=== PATIENT | female | born 1985 | race Caucasian/White ===

== ENCOUNTER → 2016-10-16 | Outpatient (CLI) | payer BC ==
[~2016-10-16] MED LIST: BUSP5TAB59 PO; CETI10TA84 PO; CIPR-255 PO; CITA20TA9 PO
--- NOTE | 2016-10-16 12:26 | DIAGNOSTIC IMAGING REPORT ---
EXAMINATION: PELVIC ULTRASOUND (transabdominal and endovaginal scanning) CLINICAL HISTORY: Adnexal mass COMPARISON STUDY: 10/09/2015 FINDINGS: The uterus measured 7.6 x 3.1 x 4.5 cm. The bulging gland cysts are visualized. The endometrial stripe measured 9 mm. The right ovary measured 30 x 18 x 24 mm. The left ovary measured 38 x 18 x 24 mm.. There is no ultrasonographic evidence of ovarian torsion. It should be noted that ovarian torsion can be present with normal Doppler ultrasonographic findings. There is trace free fluid likely physiologic. IMPRESSION: Normal pelvic ultrasound. Electronically signed by: Júnior Martinez M.D. 10/16/2016 12:24 PM Dictated Date/Time: 10/16/2016 12:23 PM
== END | disposition home or self-care (01) ==
LOC: C.ULTR 11:40
PROVIDERS: ATTEND Nurse Practitioner Family
DX: N94.9 Unspecified condition associated with female genital organs and menstrual cycle (principal)

== ENCOUNTER 2017-01-01 09:29 | Emergency (ER) | payer BC ==
[~2017-01-01 09:29] MED LIST changes: -BUSP5TAB59 PO
[2017-01-01 09:35] VITALS: TEMP 36.9
[2017-01-01] MEDS ORDERED: MoRPHine SULFATE 4 MG/ML 1 ML CARP\\VIAL IV STA (09:46)
[2017-01-01] MEDS ORDERED: ONDANSETRON INJ 2 MG/ML 2 ML VIAL IV STA (09:46)
[2017-01-01] MEDS ORDERED: SODIUM CHLORIDE 0.9% 1000ML 1,000 ML IV STA (09:46)
[2017-01-01 10:07] LABS: BASO % 0.7 %; BASO ABS # 0.03 K/uL (0-0.2); COMPLETE YES; EOS % 1.9 %; HEMATOCRIT 37.1 % (37-47); IG% 0.2 %; LYMPH ABS # 1.28 K/uL (1.2-3.4); MEAN CELL VOLUME 88.3 fL (80-100); MEAN CORPUSCULAR HEMOGLOBIN 31.4 pg (25-34); MEAN CORPUSCULAR HGB CONC 35.6 g/dl (32-36); MEAN PLATELET VOLUME 8.9 fL (7.4-10.4); MONO % 9.4 %; NEUT % 56.8 %; PLATELET COUNT 303 K/uL (130-400); WHITE BLOOD COUNT 4.13 K/uL (4.8-10.8)
--- NOTE | 2017-01-01 10:15 | EMERGENCY ROOM VISIT NOTE ---
History Report prepared by Brody: Delaney Cardona Under the Supervision of: Dr. Katy Zamudio M.D. First contact with patient: 09:41 Chief Complaint: ABDOMINAL PAIN Stated Complaint: SEVERE ABD. CRAMPS, HIP PAIN-RIGHT SIDE History of Present Illness The patient is a 31 year old female who presents to the Emergency Room with complaints of waxing and waning abdominal pain for the past 4 days. The patient took a test at home 4 days ago because of a missed period. The test was positive and she estimates that she is about 5 weeks . Over the past few days she has had some lower abdominal cramping that is worse on the right side. She states that her pain has been getting more intense, and last night her pain was so severe that she was doubled over. The patient reports burning pain into her right hip. She rates her pain as an 8/10 in severity. She denies any vaginal bleeding or previous gynecologic problems. This is her first . Her blood type is A+ and she has never had a blood transfusion. 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 Source of History: patient Onset: 4 days ago Position: abdomen Symptom Intensity: 8/10 Quality: burning, cramping Timing: waxes/wanes Note: Pt denies vaginal bleeding. Review of Systems See HPI for pertinent positives & negatives. A total of 10 systems reviewed and were otherwise negative. Past Medical & Surgical Medical Problems: (1) Asthma (2) Bronchitis Surgical Problems: (1) H/O wisdom tooth extraction Family History Cancer Heart disease Hypertension Kidney disease Kidney stones Social History Smoking Status: Never Smoker Smokeless Tobacco Use: No Alcohol Use: occasionally Marital Status: in relationship Housing Status: lives with significant other Occupation Status: employed Current/Historical Medications Scheduled Buspirone Hcl (Buspirone Hcl), 1 TAB PO QPM Citalopram Hydrobromide (Celexa), 10 MG PO DAILY Allergies Coded Allergies: Cefuroxime (Unverified Adverse Reaction, Unknown, UNK, 10/09/15) Clindamycin (Unverified Adverse Reaction, Unknown, UNK, 10/09/15) Doxycycline (Unverified Adverse Reaction, Unknown, UNK, 10/09/15) Erythromycin (Unverified Adverse Reaction, Unknown, unk, 10/09/15) Physical Exam Vital Signs Date Time Temp Pulse Resp B/P (MAP) Pulse Ox O2 Delivery O2 Flow Rate FiO2 01/01/17 12:15 89 18 111/63 100 01/01/17 11:19 80 22 105/72 100 Room Air 01/01/17 10:05 89 01/01/17 09:35 36.9 78 20 121/80 100 Room Air Physical Exam Vital signs reviewed. General: Well-appearing 31 year old female, in no significant distress. HEENT: No scleral icterus, PERRLA, neck supple. Atraumatic. Cardiovascular: Regular rate and rhythm, no extra sounds. Pulmonary: Clear to auscultation bilaterally, normal work of breathing. Abdomen: Soft, mild RLQ tenderness, no rebound or guarding, nondistended, positive bowel sounds. Musculoskeletal: Atraumatic, no peripheral edema. Neurologic: Patient awake alert and oriented x 3, full strength in all 4 extremities. Cranial nerves 2 through 12 grossly intact. Skin: Warm, dry, no rash Medical Decision & Procedures ER Provider Diagnostic Interpretation: Radiology results as stated below per my review and radiologist interpretation: ECTOPIC CLINICAL HISTORY: RLQ abd pain, 5 weeks Joseph pain TECHNIQUE: Ultrasound COMPARISON STUDY: 10/16/2016 FINDINGS: Intrauterine gestational sac measuring 1 cm. No pole is confirmed on this may be secondary to the early gestational age. A yolk sac is present. Right ovary measures 3.3 cm at maximum with normal vascular flow. 1.7 cm corpus luteum cyst. Left ovary measures 2.8 cm with normal vascular flow. IMPRESSION: 1. Early intrauterine gestational sac demonstrating a yolk sac. 2. A pole is not confirmed, although this may be secondary to the early gestational age is 5 weeks. 3. 1.7 cm corpus luteum cyst right ovary. 4. Follow-up ultrasound is recommended in one to 2 weeks to confirm viability The above report was generated using voice recognition software. It may contain grammatical, syntax or spelling errors. Electronically signed by: Pedro Triplett M.D. 01/01/2017 11:07 AM Dictated Date/Time: 01/01/2017 11:04 AM Laboratory Results 01/01/17 09:51 Red Blood Count 4.20, Mean Corpuscular Volume 88.3, Mean Corpuscular Hemoglobin 31.4, Mean Corpuscular Hemoglobin Concent 35.6, Mean Platelet Volume 8.9, Neutrophils (%) (Auto) 56.8, Lymphocytes (%) (Auto) 31.0, Monocytes (%) (Auto) 9.4, Eosinophils (%) (Auto) 1.9, Basophils (%) (Auto) 0.7, Neutrophils # (Auto) 2.34, Lymphocytes # (Auto) 1.28, Monocytes # (Auto) 0.39, Eosinophils # (Auto) 0.08, Basophils # (Auto) 0.03 01/01/17 09:51 Test 01/01/17 09:51 01/01/17 10:05 01/01/17 10:25 White Blood Count 4.13 K/uL (4.8-10.8) Red Blood Count 4.20 M/uL (4.2-5.4) Hemoglobin 13.2 g/dL (12.0-16.0) Hematocrit 37.1 % (37-47) Mean Corpuscular Volume 88.3 fL (80-100) Mean Corpuscular Hemoglobin 31.4 pg (25-34) Mean Corpuscular Hemoglobin Concent 35.6 g/dl (32-36) Platelet Count 303 K/uL (130-400) Mean Platelet Volume 8.9 fL (7.4-10.4) Neutrophils (%) (Auto) 56.8 % Lymphocytes (%) (Auto) 31.0 % Monocytes (%) (Auto) 9.4 % Eosinophils (%) (Auto) 1.9 % Basophils (%) (Auto) 0.7 % Neutrophils # (Auto) 2.34 K/uL (1.4-6.5) Lymphocytes # (Auto) 1.28 K/uL (1.2-3.4) Monocytes # (Auto) 0.39 K/uL (0.11-0.59) Eosinophils # (Auto) 0.08 K/uL (0-0.5) Basophils # (Auto) 0.03 K/uL (0-0.2) RDW Standard Deviation 39.0 fL (36.4-46.3) RDW Coefficient of Variation 12.1 % (11.5-14.5) Immature Granulocyte % (Auto) 0.2 % Immature Granulocyte # (Auto) 0.01 K/uL (0.00-0.02) Anion Gap 6.0 mmol/L (3-11) Estimated GFR () 131.5 Estimated GFR (Non- 113.5 BUN/Creatinine Ratio 16.3 (10-20) Calcium Level 8.8 mg/dl (8.5-10.1) Total Bilirubin 0.4 mg/dl (0.2-1) Direct Bilirubin < 0.1 mg/dl (0-0.2) Aspartate Amino Transf (AST/SGOT) 15 U/L (15-37) Alanine Aminotransferase (ALT/SGPT) 19 U/L (12-78) Alkaline Phosphatase 49 U/L (45-117) Total Protein 7.2 gm/dl (6.4-8.2) Albumin 3.9 gm/dl (3.4-5.0) Human Chorionic Gonadotropin, Qual POS (NEG) Urine Color YELLOW Urine Appearance CLEAR (CLEAR) Urine pH 7.0 (4.5-7.5) Urine Specific [place] 1.014 (1.000-1.030) Urine Protein NEG (NEG) Urine Glucose (UA) NEG (NEG) Urine Ketones NEG (NEG) Urine Occult Blood TRACE (NEG) Urine Nitrite NEG (NEG) Urine Bilirubin NEG (NEG) Urine Urobilinogen NEG (NEG) Urine Leukocyte Esterase MODERATE (NEG) Urine WBC (Auto) 5-10 /hpf (0-5) Urine RBC (Auto) 5-10 /hpf (0-4) Urine Hyaline Casts (Auto) 1-5 /lpf (0-5) Urine Epithelial Cells (Auto) >30 /lpf (0-5) Urine Bacteria (Auto) 1+ (NEG) Human Chorionic Gonadotropin, Quant 69807 mIU/mL Date/Time Source Procedure Growth Status 01/01/17 10:05 Urine , Clean Catch Urine Culture - Final THREE TYPES OF ORGANSIMS PRESENT, ALL... Complete Laboratory results per my review. Medications Administered Medications (Trade) Dose Ordered Sig/Milla Route Start Time Stop Time Status Last Admin Dose Admin Sodium Chloride 1,000 ml @ 999 mls/hr Q1H1M STAT IV 01/01/17 09:46 01/01/17 10:46 DC 01/01/17 09:59 999 MLS/HR Morphine Sulfate (MoRPHine SULFATE INJ) 4 mg NOW STAT IV 01/01/17 09:46 01/01/17 09:48 DC 01/01/17 10:00 4 MG Ondansetron HCl (Zofran Inj) 4 mg NOW STAT IV 01/01/17 09:46 01/01/17 09:48 DC 01/01/17 09:59 4 MG ED Course 09: Past medical records reviewed. The patient was evaluated in room B12B. A complete history and physical examination was performed. 0946: Zofran 4 mg IV, Morphine sulfate 4 mg IV, NSS 1000 ml @ 999 mls/hr IV 1140: I updated the patient on her US results. 1200: I reassessed the patient at this time. She is feeling better and resting comfortably. I discussed the results and treatment plan with the patient. I answered all pertaining questions that she had. She expressed understanding and verbalized agreement. The patient will be discharged home. Medical Decision Differential diagnosis: Etiologies such as appendicitis, diverticulitis, PUD, biliary pathology, UTI, pancreatitis, obstruction, mesenteric ischemia, aortic pathology, infections, inflammatory bowel disease, renal colic, ectopic , intrauterine , kidney stone, ovarian cyst, as well as others were entertained. This patient was evaluated and appeared to be in no significant distress. IV access was obtained and laboratory work was drawn. Patient was placed on the plumbing drafter and found to be cholecystitis rhythm. Patient was hydrated with normal saline solution. Patient was given morphine and Zofran for her discomforts. Ultrasound pelvis was performed and reveals an IUP. Patient was informed of the findings. She'll follow-up with her COIL FINISHER this week and return to the ER for worsening of symptoms or any medical concerns. Impression Primary Impression: First trimester Additional Impression: Right lower quadrant abdominal pain Scribe Attestation The scribe's documentation has been prepared under my direction and personally reviewed by me in its entirety. I confirm that the note above accurately reflects all work, treatment, procedures, and medical decision making performed by me. Departure Information Dispostion Home / Self-Care Referrals uHbert Bender M.D. (PCP) Forms Call Back Authorization, HOME CARE DOCUMENTATION FORM, IMPORTANT VISIT INFORMATION Patient Instructions My [facility] Additional Instructions Diagnosis: Right lower quadrant abdominal pain, first trimester . Tylenol 650 mg every 6 hours as needed for pain. Drink plenty of clear fluids and do not overexert herself. 2 chewable vitamins daily. Avoid alcohol and illicit substances. Do not use ibuprofen or aspirin. Follow-up with your COIL FINISHER as scheduled if not sooner. Return to the emergency department for worsening of symptoms or any medical concerns. Problem Qualifiers
[2017-01-01 10:19] LABS: URINE APPEARANCE CLEAR (CLEAR); URINE BILIRUBIN NEG (NEG); URINE COLOR YELLOW; URINE EPITHELIAL CELL AUTO >30 /lpf (0-5); URINE NITRITE NEG (NEG); URINE SPECIFIC GRAVITY 1.014 (1.000-1.030); UROBILINOGEN NEG (NEG); ZZUR CULT IF INDIC CLEAN CATCH YES
[2017-01-01 10:23] LABS: MANUAL MICROSCOPIC REQUIRED? NO; REVIEW REQ? NO
[2017-01-01 10:31] LABS: ALT/SGPT 19 U/L (12-78); BLOOD UREA NITROGEN 12 mg/dl (7-18); BUN/CREATININE RATIO 16.3 (10-20); CALCIUM 8.8 mg/dl (8.5-10.1); CARBON DIOXIDE 25 mmol/L (21-32); CHLORIDE 108 mmol/L (98-107); CREATININE 0.71 mg/dl (0.60-1.20); GLUCOSE 87 mg/dl (70-99); POTASSIUM 3.4 mmol/L (3.5-5.1); SODIUM 139 mmol/L (136-145)
[2017-01-01 10:34] LABS: ALKALINE PHOSPHATASE 49 U/L (45-117); AST/SGOT 15 U/L (15-37)
[2017-01-01 10:53] LABS: PREG INTERNAL NEGATIVE QC NEG CLEAR BACKGROUND; PREG INTERNAL POSITIVE QC POS CONTROL LINE
--- NOTE | 2017-01-01 11:09 | DIAGNOSTIC IMAGING REPORT ---
ECTOPIC CLINICAL HISTORY: RLQ abd pain, 5 weeks Joseph pain TECHNIQUE: Ultrasound COMPARISON STUDY: 10/16/2016 FINDINGS: Intrauterine gestational sac measuring 1 cm. No pole is confirmed on this may be secondary to the early gestational age. A yolk sac is present. Right ovary measures 3.3 cm at maximum with normal vascular flow. 1.7 cm corpus luteum cyst. Left ovary measures 2.8 cm with normal vascular flow. IMPRESSION: 1. Early intrauterine gestational sac demonstrating a yolk sac. 2. A pole is not confirmed, although this may be secondary to the early gestational age is 5 weeks. 3. 1.7 cm corpus luteum cyst right ovary. 4. Follow-up ultrasound is recommended in one to 2 weeks to confirm viability The above report was generated using voice recognition software. It may contain grammatical, syntax or spelling errors. Electronically signed by: Pedro Triplett M.D. 01/01/2017 11:07 AM Dictated Date/Time: 01/01/2017 11:04 AM
[2017-01-01] MEDS ORDERED: BUSP5TAB59 PO (11:12)
[2017-01-01 12:15] VITALS: BP 111/63; PULSE 89; O2SAT 100
== END 2017-01-01 12:18 | disposition home or self-care (01) ==
LOC: C.EDB 09:30
DX: O26.91 Pregnancy related conditions, unspecified, first trimester (principal); R10.31 Right lower quadrant pain; J45.909 Unspecified asthma, uncomplicated; Z79.899 Other long term (current) drug therapy; Z80.9 Family history of malignant neoplasm, unspecified; Z82.49 Family history of ischemic heart disease and other diseases of the circulatory system; Z84.1 Family history of disorders of kidney and ureter

== ENCOUNTER 2017-08-24 05:46 | Inpatient (IN) | payer OTHER ==
[~2017-08-24] VITALS: Ht 162.6 cm; Wt 87.7 kg
[~2017-08-24 05:46] MED LIST changes: +BUSP5TAB59 PO; -CETI10TA84 PO; -CIPR-255 PO
[2017-08-24] MEDS ORDERED: NURSING VERBAL MED ORDER ONE (08:15)
[2017-08-24] MEDS ORDERED: OXYTOCIN 30 UNITS/500ML NSS IV ONE (08:19)
[2017-08-24] MEDS ORDERED: PENICILLIN G POTASSIUM IV 6 MU in DEXTROSE 5% 250ML IV ONE (08:30)
[2017-08-24] MEDS ORDERED: LACTATED RINGER'S 1000ML 1,000 ML IV SCH (09:40)
[2017-08-24] MEDS ORDERED: OXYTOCIN 30 UNITS/500ML NSS IV PRN (09:45)
[2017-08-24] MEDS ORDERED: LANOLIN OINT EXT PRN (09:45)
[2017-08-24] MEDS ORDERED: BENZOCAINE 20% AER SPR 82.5 GM CAN EXT PRN (09:45)
[2017-08-24] MEDS ORDERED: HYDROCORTISONE ACETATE 25 MG SUPP PR PRN (09:45)
[2017-08-24] MEDS ORDERED: DIPHTHERIA/TETANUS/PERTUSSIS 0.5 ML SYR/VIAL IM. ONE (09:45)
[2017-08-24] MEDS ORDERED: MEASLES, MUMPS & RUBELLA VIRUS VIAL SQ. ONE (09:45)
[2017-08-24] MEDS ORDERED: SUPERCREAM 0.870 % 15GM JAR EXT PRN (09:45)
[2017-08-24] MEDS ORDERED: ACETAMINOPHEN 325 MG TAB PO PRN (09:45)
[2017-08-24] MEDS ORDERED: OXYCODONE/ACETAMINOPHEN 5-325 TAB PO PRN (09:45)
[2017-08-24 10:04] LABS: HEMATOCRIT 38.5 % (37-47); HEMOGLOBIN 13.6 g/dL (12.0-16.0); MEAN CELL VOLUME 84.4 fL (80-100); MEAN CORPUSCULAR HEMOGLOBIN 29.8 pg (25-34); MEAN CORPUSCULAR HGB CONC 35.3 g/dl (32-36); MEAN PLATELET VOLUME 10.4 fL (7.4-10.4); PLATELET COUNT 220 K/uL (130-400); RED CELL DISTRIBUTION WIDTH CV 13.3 % (11.5-14.5); WHITE BLOOD COUNT 15.79 K/uL (4.8-10.8)
[2017-08-24 11:30] VITALS: Ht 162.6 cm; Wt 87.7 kg
[2017-08-24 12:51] VITALS: BP 121/77; PULSE 118; TEMP 36.6; O2SAT 98
--- NOTE | 2017-08-24 15:15 | DELIVERY SUMMARY ---
DATE OF OPERATION: 08/24/2017 TIME OF DELIVERY OF BABY: 8:59 a.m. TIME OF DELIVERY OF PLACENTA: 9:30 a.m. DETAILS OF ADMISSION AND DELIVERY: The patient is a 31-year-old G1, P0, at 39 weeks of gestation, who presented to labor and delivery this morning for labor check. She started to feel contractions at around 0030am this morning, they were every 5 minutes initially and then get closer and more painful. When she first presented to L&D her cervix was 3 cm dilated, 25% effaced, -3, and posterior location and the contractions were every 3-7 minutes. Her nurse discussed the case with Dr. Carbone who recommended to recheck her in 2 hours. She ambulated and then she came back to monitor again. She was having contractions every 3-4 minutes. She was taken off from monitor at 7:46 a.m. Until then, she was not very uncomfortable. Her contractions were mild to moderate and she was able to talk and laugh with them. She was going to take another walk until 8:15 but she suddenly got uncomfortable at 8:00 a.m. and then she was brought back to the bed by RYLAN Strickland, who checked her and found that she was fully dilated with tight bulging membranes which spontaneously ruptured. I was called into the room. When I presented to the room, she was uncomfortable and involuntarily pushing. I checked her cervix, has thin rim on the right side right side, about 9 cm, 90% effaced and 0 station. The heart rate was in 120s. She had not had IV at that point. IV was then started and pharmacy was called for penicillin due to GBS positive status. 6 million units of penicillin were given while she was pushing. She pushed for about 45 minutes and delivered the head without difficulty. Shoulders came right after with the head with one push. The baby was handed off to mother where mouth and nose were suctioned. Cord was clamped x2 and cut at 1 minute delay. Cord blood was obtained. Vagina and perineum were checked for lacerations. There was a second-degree perineal laceration and first-degree right labial laceration. Rectal exam was done and confirmed to be second degree. Excellent sphincter tone was noted. Gloves were changed. 1% lidocaine was used for local anesthesia. The perineal laceration was repaired with 2-0 Vicryl in a running locked fashion and labial laceration was repaired with 3-0 Vicryl in running fashion. Excellent hemostasis was achieved. . Placenta was found to be in the vagina, delivered spontaneously intact and complete, and lower segment was cleared of all clots and debris. Fundus was firm. EBL was 200. Mother and baby tolerated the procedure well. At the end of the procedure, sponge, lap, needle and instrument counts were correct x2. The baby was a viable female infant. Apgars 8/9. Weight was 3205 gr. No complications happened. I was present during the whole procedure. I attest to the content of the Intraoperative Record and any orders documented therein. Any exceptions are noted below. MTDD
[2017-08-24] MEDS: IBUPROFEN 600 MG TAB PO PRN ×2 (16:12→23:26)
[2017-08-24 16:15] VITALS: BP 119/79; PULSE 96; TEMP 37.1
[2017-08-24 20:20] VITALS: BP 120/79; PULSE 96; TEMP 36.9
[2017-08-24] MEDS: DOCUSATE SODIUM 100 MG CAP PO SCH (20:33)
[2017-08-24] MEDS: CITALOPRAM 20 MG TAB PO SCH (21:36)
[2017-08-24 23:20] VITALS: BP 129/80; PULSE 85; TEMP 36.7; O2SAT 99
[2017-08-25 03:05] VITALS: BP 113/73; PULSE 85; TEMP 36.8; O2SAT 99
[2017-08-25 07:24] LABS: HEMATOCRIT 29.7 % (37-47); HEMOGLOBIN 10.4 g/dL (12.0-16.0)
[2017-08-25 08:15] VITALS: BP 119/82; PULSE 96; TEMP 36.8; O2SAT 98
--- NOTE | 2017-08-25 08:20 | OB/GYN Progress Note ---
COMMUNICATION CENTER OPERATOR Progress Note Date of Service Aug 25, 2017. Subjective conversation w/ patient, physical exam Ambulation: ambulating normally Voiding: no voiding problems Passing Gas: Yes Diet Tolerance: Regular Diet Lochia: Small Feeding Type: Breast Feeding Objective Vital Signs Date Time Temp Pulse Resp B/P (MAP) Pulse Ox O2 Delivery O2 Flow Rate FiO2 08/25/17 03:05 36.8 85 18 113/73 (86) 99 Room Air 08/24/17 23:20 99 Room Air 08/24/17 23:20 36.7 85 16 129/80 (96) 99 Room Air 08/24/17 20:20 36.9 96 18 120/79 (93) Room Air 08/24/17 16:15 37.1 96 18 119/79 (92) Room Air 08/24/17 16:15 Room Air 08/24/17 12:51 36.6 118 20 121/77 (92) 98 Room Air 08/24/17 12:51 Room Air Physical Exam General Appearance: WELL-APPEARING, NO APPARENT DISTRESS Abdomen: non tender, soft Fundus: Firm Extremities: normal inspection, no pedal edema, no calf tenderness Laboratory Results Last 24 Hours Test 08/24/17 09:48 08/25/17 06:40 White Blood Count 15.79 K/uL Red Blood Count 4.56 M/uL Hemoglobin 13.6 g/dL 10.4 g/dL Hematocrit 38.5 % 29.7 % Mean Corpuscular Volume 84.4 fL Mean Corpuscular Hemoglobin 29.8 pg Mean Corpuscular Hemoglobin Concent 35.3 g/dl RDW Standard Deviation 40.0 fL RDW Coefficient of Variation 13.3 % Platelet Count 220 K/uL Mean Platelet Volume 10.4 fL Assessment and Plan Post- Day Number: 1 Continue Routine Care: TENT D/C IN am
[2017-08-25] MEDS: DOCUSATE SODIUM 100 MG CAP PO SCH ×2 (08:38→20:30)
[2017-08-25] MEDS: PRENATAL VITAMIN TAB PO SCH (08:38)
[2017-08-25] MEDS: FERROUS SULFATE 325 MG TAB PO SCH (08:39)
[2017-08-25] MEDS: IBUPROFEN 600 MG TAB PO PRN ×2 (08:39→16:07)
[2017-08-25 16:00] VITALS: BP 120/81; PULSE 92; TEMP 36.8; O2SAT 98
[2017-08-25] MEDS ORDERED: BISACODYL 5 MG TABEC PO SCH (20:00)
[2017-08-25] MEDS: CITALOPRAM 20 MG TAB PO SCH (20:30)
[2017-08-25 23:25] VITALS: BP 117/78; PULSE 74; TEMP 36.8
[2017-08-26] MEDS ORDERED: BISACODYL 10 MG SUPP PR PRN (07:00)
[2017-08-26 08:02] VITALS: BP 116/81; PULSE 90; TEMP 36.8; O2SAT 99
[2017-08-26] MEDS: DOCUSATE SODIUM 100 MG CAP PO SCH (08:30)
[2017-08-26] MEDS: PRENATAL VITAMIN TAB PO SCH (08:30)
[2017-08-26] MEDS: FERROUS SULFATE 325 MG TAB PO SCH (08:30)
[2017-08-26] MEDS: IBUPROFEN 600 MG TAB PO PRN (08:31)
--- NOTE | 2017-08-26 09:16 | OB/GYN Progress Note ---
TURPENTINER Progress Note Date of Service: Aug 26, 2017. Patient is seen and examined. She feels well, no complaints. Ambulating without dizziness Voiding without difficulty Tolerating regular diet with out N&V Bleeding is minimal No fever/ chills/ CP/ SOB/ N&V/ Leg pain Breast feeding without problems Date Time Temp Pulse Resp B/P (MAP) Pulse Ox O2 Delivery O2 Flow Rate FiO2 08/26/17 08:02 36.8 90 16 116/81 (93) 99 Room Air 08/25/17 23:25 Room Air 08/25/17 23:25 36.8 74 18 117/78 (91) Room Air 08/25/17 16:00 36.8 92 18 120/81 (94) 98 Room Air 08/25/17 16:00 Room Air Test 08/24/17 09:48 08/25/17 06:40 White Blood Count 15.79 H Red Blood Count 4.56 Hemoglobin 13.6 10.4 #L Hematocrit 38.5 29.7 L Mean Corpuscular Volume 84.4 Mean Corpuscular Hemoglobin 29.8 Mean Corpuscular Hemoglobin Concent 35.3 RDW Standard Deviation 40.0 RDW Coefficient of Variation 13.3 Platelet Count 220 Mean Platelet Volume 10.4 PE: General: Alert, orientedx3, NAD Abd: soft, NT, fundus firm, below Umbilicus Perineum intact, Lochia rubra minimal Ext; NT, no edema AP: 31 yo s/p , ppd# 2 VSS Afebrile doing well Continue routine care Instructions were given when to call All questions were answered D/C home, f/u in office
--- NOTE | 2017-08-26 09:20 | Discharge Instructions ---
Discharge Instructions Date of Service Aug 26, 2017. Admission Reason for Admission: Labor Check Discharge Discharge Diagnosis / Problem: Discharge Goals Goal(s): Routine recovery after delivery Activity Recommendations Activity Limitations: as noted below ACTIVITY RECOMMENDATIONS: * Gradual return to full activity over the next 2-3 weeks. * No lifting - nothing heavier than baby over the next 2-3 weeks. * Do not engage in vigorous exercise, sexual activity or sports until cleared by your physician. * Do not drive or operate any motorized equipment until cleared by your physician. * You may shower/bathe daily. BREAST CARE: If you are not breast feeding: * Wear a supportive bra 24 hours a day for one to two weeks. * Avoid stimulating your breasts and nipples as much as possible during the first few weeks after delivery. * When taking a shower, have the warm water hit your back, not breasts. * When your breasts feel full, apply ice packs. Usually three to four times a day helps ease the discomfort. * Take a mild pain medication (Tylenol/Motrin) when you are uncomfortable. If breast feeding: * Use breast milk to lubricate nipples. Lansinoh cream may be used for sore nipples. You do not need to remove cream prior to breast feeding. If using a different brand of cream, check the label for directions regarding removal of cream prior to nursing. * Wear a supportive bra. * If having problems with breasts or breast feeding, call a sales consultant residential manager or your health care provider. EPISIOTOMY CARE: After delivery, if you have an episiotomy (stitches), the following steps will ease discomfort and aid healing. * For the first 24 hours after delivery, place ice packs next to your episiotomy to help reduce swelling. * After the first 24 hour-period, sitz baths, either portable or in the tub, are suggested. A shower with a shower arm sprayed over the episiotomy may be comforting. * Yoselin care should be done after each voiding and bowel movement. Squirt warm water from a plastic bottle over the perineum (region of the body between the anus and urinary opening) and pat dry. * Use Dermoplast to ease discomfort. Shake container. [place] directly over the episiotomy. * Place a Tucks on a clean sanitary pad next to your episiotomy. OVER THE COUNTER MEDICATION: * For discomfort or pain, you may use Acetaminophen (Tylenol), Ibuprofen (Advil ), or Naproxen (Aleve) following the package directions. * For constipation you may use Colace following the package directions. SPECIAL CARE INSTRUCTIONS: When you are discharged from the hospital, it is important for you to follow the instructions listed below: * During the first week at home, you should be able to care for yourself and your baby. In addition, the usual light household activities are encouraged. * Limit your activities to the way you feel. Do not try to clean the house or move furniture. Be sensible. * If you actively engage in sports and have done so up until the time of your delivery, you may resume these activities as soon as you feel able. This may take up to one month or even longer. Use good judgment. * Continue to take your vitamins for at least six weeks after the of your baby. * Your diet need not be limited unless you were on a special diet before your delivery. Breast-feeding mothers need around 2500 calories per day and at least 64-80 ounces of fluid per day (8 to 10 glasses). * You should eat foods from the four major food groups. Crash diets or fad diets are to be avoided. Eating lean meats, fresh fruits and vegetables, low-fat dairy products, high fiber foods and a regular exercise program, will help you get back to your pre- weight without putting your health at risk. * Constipation is sometimes a problem after delivery. Take a mild laxative as needed. If breast feeding, Milk of Magnesia is acceptable to use. You may use a suppository or Fleets enema if no episiotomy. * A daily shower or tub bath is suggested. Be sure to thoroughly and gently dry the perineum. * A bloody vaginal discharge will usually continue until around four weeks post . A small amount of bleeding may continue for as long as six weeks. Vaginal discharge changes from the bright red bleeding after delivery to pink then brownish and finally yellowish-pink before becoming white and disappearing. * Bleeding may increase with activity. Your first period may come in 4-8 weeks. If you are breast feeding, your period may be delayed even longer. * [place] (sex) can begin whenever both you and your partner feel comfortable and do not have any form of genital infection. It is recommended that you wait until after your return appointment and discuss with your physician. If you have questions, please talk to your health care practitioner. A condom should be used to prevent infection and . * Foreplay, gentle intercourse and lubrication is very important the first several times to prevent pain. A water-based lubricant such as K-Y jelly or Astroglide may be used. * Tampons may be used six weeks after delivery. * Douching should be avoided for 6 weeks after delivery. * If you have RH negative blood and your baby is RH positive, you will receive RHOGAM by injection prior to discharge. The nurse will give you a card to keep with you that has the date and place that you received RHOGAM after delivery. * During your care, you had a Rubella screen done to check for the presence of rubella antibodies in your blood. If your test was negative, you will receive a Rubella vaccine prior to discharge. This vaccine may cause a fever, soreness at the injection site and flu-like symptoms. If these symptoms persist, notify your health care practitioner. is not advised for three months after a Rubella vaccine. There is a higher chance of having a baby with defects if conceived within three months of getting the vaccine. * If you were discharged 24 hours from delivery or before 48 hours: Visiting nurses will come to your home 48 hours after discharge to assess you and your baby. The visiting nurse will meet with you while you are in the hospital to arrange a time and get directions to your home. * Verbalizes understanding of car seat law as reviewed with patient nursing. * Car Seat hand-out given and reviewed with patient by nursing. * Shaken baby information reviewed with patient by nursing. Call you doctor if: * Heavy bleeding (saturating several pads an hour) or passing clots the size of your fist. * A fever >101 degrees F (38.3 degrees C) on two occasions four hours apart and/or chills. * Unusual pain in the pelvic or vaginal areas. * "Baby Blues" lasting longer than two weeks. If you have any questions or concerns, call your health care practitioner at . FOLLOW-UP VISIT: * Please call the office at to schedule a 6 week examination. It is important you keep this appointment. * It is important for you to make arrangements for either yearly or twice yearly check-ups thereafter. . Current Hospital Diet Patient's current hospital diet: Regular OB Diet Discharge Diet Recommended Diet: Regular Diet Pending Studies Studies pending at discharge: no Medical Emergencies . Who to Call and When: Medical Emergencies: If at any time you feel your situation is an emergency, please call 911 immediately. . Non-Emergent Contact Non-Emergency issues call your: Specialist Call Non-Emergent contact if: you have a fever, temperature is above 100.5, temperature is above 101, your pain is not controlled, your pain is worsening . . "Provider Documentation" section prepared by Justen Gunter. .
[2017-08-26 09:25] VITALS: O2SAT 99
[2017-08-26 13:20] VITALS: BP_DIAS 81; PULSE 90; TEMP 36.8
== END 2017-08-26 13:20 | disposition home or self-care (01) | DRG 775 ==
LOC: C.OPB 05:46 → C.LD 05:46 → UNDOADMIN 07:30 → C.OPB 07:30 → C.LD 07:30 → C.OBG 12:44
PROVIDERS: ADMIT Obstetrics & Gynecology; ATTEND Obstetrics & Gynecology
PROC: 0KQM0ZZ Repair Perineum Muscle, Open Approach (ICD-10-PCS; principal; 2017-08-24)
PROC: 10E0XZZ Delivery of Products of Conception, External Approach (ICD-10-PCS; principal; 2017-08-24)
DX: O99.343 Other mental disorders complicating pregnancy, third trimester (principal); O99.513 Diseases of the respiratory system complicating pregnancy, third trimester; O70.1 Second degree perineal laceration during delivery; J45.909 Unspecified asthma, uncomplicated; F32.9 Major depressive disorder, single episode, unspecified; F41.9 Anxiety disorder, unspecified; Z22.330 Carrier of Group B streptococcus; Z37.0 Single live birth; Z3A.39 39 weeks gestation of pregnancy